=== PATIENT | male | born 1975 | race Caucasian/White ===

== ENCOUNTER 2018-03-21 18:54 | Emergency (ER) | payer OTHER ==
[2018-03-21 19:02] VITALS: RESP 18
[2018-03-21] MEDS ORDERED: IBUPROFEN 600 MG TAB PO STA (19:35)
--- NOTE | 2018-03-21 19:42 | ED ---
General Adult HPI - General Chief complaint: Extremity Injury, Lower Stated complaint: ankle injury-[facility] Time Seen by Provider: 03/21/18 19:04 Source: patient, RN notes reviewed Mode of arrival: ambulatory Limitations: no limitations - History of Present Illness Initial comments: 42-year-old male presents to the emergency department for a chief complaint of left ankle pain 3 hours. 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 Patient states he heard a pop. Patient states he has been ambulating on the ankle without difficulty. He has not had Motrin or Tylenol as of yet. He denies falling, hitting his head, or any other injuries. Patient has no other complaints at this time including shortness of breath, chest pain, abdominal pain, nausea or vomiting, headache, or visual changes. - Related Data Home Medications Medication Instructions Recorded Confirmed No Known Home Medications 03/21/18 03/21/18 Allergies Allergy/AdvReac Type Severity Reaction Status Date / Time Sulfa (Sulfonamide Allergy Rash/Hives Verified 03/21/18 19:02 Antibiotics) Review of Systems ROS Statement: Those systems with pertinent positive or pertinent negative responses have been documented in the HPI. ROS Other: All systems not noted in ROS Statement are negative. Past Medical History Past Medical History: Asthma History of Any Multi-Drug Resistant Organisms: None Reported Additional Past Surgical History / Comment(s): vasectomy Past Psychological History: No Psychological Hx Reported Smoking Status: Former smoker Past Alcohol Use History: None Reported Past Drug Use History: None Reported General Exam Limitations: no limitations General appearance: alert, in no apparent distress Head exam: Present: atraumatic, normocephalic, normal inspection Eye exam: Present: normal appearance, PERRL, EOMI. Absent: scleral icterus, conjunctival injection, periorbital swelling ENT exam: Present: normal exam, mucous membranes moist Neck exam: Present: normal inspection, full ROM. Absent: tenderness, meningismus, lymphadenopathy Respiratory exam: Present: normal lung sounds bilaterally. Absent: respiratory distress, wheezes, rales, rhonchi, stridor Cardiovascular Exam: Present: regular rate, normal rhythm, normal heart sounds. Absent: systolic murmur, diastolic murmur, rubs, gallop, clicks Extremities exam: Present: full ROM (Patient does have full range motion of the left ankle including plantar flexion and dorsi flexion although does have some pain in the lateral malleolus with dorsi flexion of the left ankle), tenderness (Tenderness noted to the left lateral malleolus. No tenderness noted to the medial malleolus. No tenderness to the navicular or fifth metatarsal in left foot.), normal capillary refill (Capillary refill less than 2 seconds and DP pulse 2+ in the left lower extremity), other (Patient does have mild edema noted over the left lateral malleolus. No ecchymosis or erythema present.) Neurological exam: Present: alert, oriented X3, CN II-XII intact Psychiatric exam: Present: normal affect, normal mood Course Vital Signs 03/21/18 18:59 Temperature 98.8 F Pulse Rate 108 H Respiratory 18 Rate Blood Pressure 137/92 O2 Sat by Pulse 96 Oximetry Medical Decision Making - Medical Decision Making 42-year-old male presents for left ankle pain after twisting his ankle. Neurovascular intact left lower extremity. There is edema noted of the left lateral malleolus. No significant tenderness noted in the left foot. There is tenderness to the left lateral malleolus. X-ray shows no fracture, mild soft tissue swelling. No fracture in the foot either. Patient was offered OCL, prefers Aircast. Patient was also given José Manuel wraps. Patient has crutches at home. He was given referral to orthopedics. He will follow up with primary care and orthopedics in one to 2 days. He will return if he has any worsening symptoms. Vitals within acceptable limits Disposition Clinical Impression: Ankle pain, left Disposition: HOME SELF-CARE Condition: Good Instructions: Ankle Sprain (ED) Additional Instructions: Please follow up with orthopedics in one to 2 days. Rest ice and elevate the left ankle. Take Motrin and Tylenol for pain. Use crutches as needed. Use air splint or José Manuel wraps. Return to the emergency department if you have any worsening symptoms. Is patient prescribed a controlled substance at d/c from ED?: No Referrals: Lucia Guo MD [Primary Care Provider] - 1-2 days Ravi Philippe MD [STAFF PHYSICIAN] - 1-2 days Time of Disposition: 20:41
--- NOTE | 2018-03-21 20:18 | XR ---
EXAMINATION TYPE: XR foot complete LT DATE OF EXAM: 03/21/2018 COMPARISON: NONE HISTORY: Foot pain TECHNIQUE: 3 views FINDINGS: There is a plantar calcaneal spur. I see no fracture nor dislocation. Metatarsals are intac t. There are no erosions. IMPRESSION: Calcaneal spurring. No fracture seen.
--- NOTE | 2018-03-21 20:19 | XR ---
EXAMINATION TYPE: XR ankle complete LT DATE OF EXAM: 03/21/2018 COMPARISON: NONE HISTORY: Pain TECHNIQUE: 3 views FINDINGS: Ankle mortise is anatomic. I see no fracture nor dislocation. There is a plantar calcaneal spur. IMPRESSION: No fracture seen. Mild lateral soft tissue swelling.
[2018-03-21 21:10] VITALS: BP 147/97; PULSE 84; TEMP 98
== END 2018-03-21 20:55 | disposition home or self-care (01) ==
LOC: EC 18:54
DX: M25.572 Pain in left ankle and joints of left foot (principal); Z88.2 Allergy status to sulfonamides; Z87.891 Personal history of nicotine dependence; X50.1XXA Overexertion from prolonged static or awkward postures, initial encounter; Y93.01 Activity, walking, marching and hiking; Y92.69 Other specified industrial and construction area as the place of occurrence of the external cause; Y99.0 Civilian activity done for income or pay
CPT/HCPCS: 99283

== ENCOUNTER → 2018-03-30 | Outpatient (CLI) | payer OTHER ==
--- NOTE | 2018-03-30 10:18 | XR ---
EXAMINATION TYPE: XR ankle complete LT DATE OF EXAM: 03/30/2018 COMPARISON: NONE HISTORY: 42-year-old male pain, twisting injury 9 days ago, ankle sprain TECHNIQUE: 3 views FINDINGS: Mild soft tissue swelling at the ankle. No acute fracture, subluxation, or dislocation. Ankle mortise remains congruent. Talar dome is intact. The subtalar joint align. Small plantar calcaneal spur. IMPRESSION: No acute or healing fracture seen. There is soft tissue swelling. Small plantar calcaneal spur.
== END ==
LOC: RADXRMAIN 09:56
PROVIDERS: ATTEND Emergency Medicine
DX: M77.32 Calcaneal spur, left foot (principal); M79.89 Other specified soft tissue disorders

== ENCOUNTER 2021-07-06 04:17 | Emergency (ER) | payer BC ==
[2021-07-06] MEDS ORDERED: HYDROmorphone 0.5 MG/0.5 ML SYRINGE IVP STA (04:38)
[2021-07-06] MEDS ORDERED: KETOROLAC 15 MG/ML 1 ML VIAL IVP STA ×2 (04:38→07:37)
[2021-07-06 04:41] LABS: Basophils # (A) 0.1 k/uL (0-0.2); Basophils % (A) 0 %; Eosinophils # (A) 0.3 k/uL (0-0.7); Eosinophils % (A) 2 %; HCT 44.9 % (39.0-53.0); Lymphocytes # (A) 1.2 k/uL (1.0-4.8); Lymphocytes % (A) 8 %; MCH 29.5 pg (25.0-35.0); MCHC 33.3 g/dL (31.0-37.0); MCV 88.5 fL (80.0-100.0); Mean Platelet Volume 6.9; Monocytes # (A) 0.9 k/uL (0-1.0); Monocytes % (A) 6 %; Neutrophils # (A) 11.7 k/uL (1.3-7.7); Neutrophils % (A) 79 %; Platelet Count 230 k/uL (150-450); RBC 5.07 m/uL (4.30-5.90); WBC 14.9 k/uL (3.8-10.6)
[2021-07-06 04:54] LABS: ALT 27 U/L (4-49); AST 23 U/L (17-59); African American GFR (CKD) >90 (>60 ml/min/1.73 sqM); Alkaline Phosphatase 77 U/L (38-126); Anion Gap 7 mmol/L; Blood Urea Nitrogen 16 mg/dL (9-20); Calcium 8.8 mg/dL (8.4-10.2); Carbon Dioxide 27 mmol/L (22-30); Chloride 102 mmol/L (98-107); Glucose 131 mg/dL (74-99); Non-African American GFR(CKD) 87 (>60 ml/min/1.73 sqM); Potassium 4.3 mmol/L (3.5-5.1); Sodium 136 mmol/L (137-145); Total Bilirubin 1.5 mg/dL (0.2-1.3); Total Protein 7.3 g/dL (6.3-8.2)
--- NOTE | 2021-07-06 05:24 | CT ---
EXAMINATION TYPE: CT abdomen pelvis wo con DATE OF EXAM: 07/06/2021 COMPARISON: None HISTORY: flank pain CT DLP: 2008.4 mGycm Automated exposure control for dose reduction was used. Images obtained from the diaphragm to the floor the pelvis without contrast. Lung bases are clear. There is no pleural effusion. Heart size is normal. No pericardial effusion. There is no adrenal mass. The kidneys have normal size. No hydronephrosis. Ureters are not dilated. T here is no retroperitoneal adenopathy. Bladder distends smoothly. There is no internal hernia. No jyotsna e fluid in the pelvis. There is no evidence of pelvic mass. Appendix not seen. No sign of thickened a ppendix. There is no mesenteric edema. No ascites or free air. No evidence of bowel obstruction. The lumbar vertebra have normal alignment. There is degenerative disc space narrowing at L4-5. Design Manager ior elements are intact. Facet joints are intact. No compression fracture. IMPRESSION: Negative CT scan abdomen and pelvis. No evidence of renal stone or obstruction.
[2021-07-06] MEDS ORDERED: HYDROmorphone 1 MG/ML 1 ML SYRINGE IVP STA (06:07)
[2021-07-06 06:16] LABS: Amylase 69 U/L (30-110); Lipase 102 U/L (23-300)
[2021-07-06 06:20] LABS: Appearance,Urine Turbid (Clear); Color,Urine Dark Red; Glucose,Urine (UA) Negative (Negative); PH, Urine 6.5 (5.0-8.0); Protein,Urine 2+ (Negative); Specific Gravity,Urine 1.022 (1.001-1.035)
[2021-07-06 06:21] LABS: Bilirubin,Urine Negative (Negative); Blood,Urine Large (Negative); Ketones,Urine 1+ (Negative); Leukocyte Esterase,Urine Large (Negative); Nitrite,Urine Positive (Negative); Urobilinogen,Urine <2.0 mg/dL (<2.0); WBC,Urine >182 /hpf (0-5)
[2021-07-06 06:22] LABS: Bacteria,Urine Occasional /hpf; Mucus,Urine Few /hpf; RBC,Urine >182 /hpf (0-5)
[2021-07-06] MEDS ORDERED: LEVOFLOXACIN 500 MG TAB PO STA (07:06)
--- NOTE | 2021-07-06 07:12 | ED ---
Abdominal Pain HPI - General Chief Complaint: Abdominal Pain Stated Complaint: kidney stone Time Seen by Provider: 07/06/21 04:33 Source: patient Mode of arrival: ambulatory Limitations: no limitations - History of Present Illness MD Complaint: flank pain Onset/Timin -: days(s) Location: L flank Radiation: suprapubic Migration to: no migration Severity: moderate Quality: aching, sharp Consistency: constant Improves With: nothing Worsens With: nothing Associated Symptoms: hematuria - Related Data Previous Rx's Medication Instructions Recorded Ciprofloxacin HCl [Cipro] 500 mg PO Q12HR #56 tablet 07/06/21 HYDROcodone/APAP 5-325MG [[place] 1 tab PO Q4HR PRN 3 Days #18 tab 07/06/21 5-325] Acetaminophen [Tylenol] 500 mg PO Q4-6H PRN #24 tab 07/15/21 Cyclobenzaprine [Flexeril] 10 mg PO TID PRN #20 tab 07/15/21 Ibuprofen [Motrin] 600 mg PO Q8HR PRN #30 tab 07/15/21 Allergies Allergy/AdvReac Type Severity Reaction Status Date / Time Sulfa (Sulfonamide Allergy Rash/Hives Verified 07/06/21 04:22 Antibiotics) Review of Systems ROS Statement: Those systems with pertinent positive or pertinent negative responses have been documented in the HPI. ROS Other: All systems not noted in ROS Statement are negative. Constitutional: Reports: fever. Denies: chills Respiratory: Denies: cough, dyspnea Cardiovascular: Denies: chest pain, palpitations, edema Gastrointestinal: Reports: as per HPI, abdominal pain. Denies: nausea, vomiting, diarrhea, constipation Genitourinary: Reports: hematuria. Denies: discharge, testicular pain, testicular mass Musculoskeletal: Denies: back pain Skin: Denies: rash Neurological: Denies: headache, weakness, numbness Past Medical History Past Medical History: Asthma History of Any Multi-Drug Resistant Organisms: None Reported Additional Past Surgical History / Comment(s): vasectomy Past Psychological History: No Psychological Hx Reported Smoking Status: Never smoker Past Alcohol Use History: None Reported Past Drug Use History: None Reported General Exam Limitations: no limitations General appearance: alert, in no apparent distress Head exam: Present: atraumatic, normocephalic Eye exam: Present: normal appearance. Absent: scleral icterus, conjunctival injection Neck exam: Present: normal inspection Respiratory exam: Present: normal lung sounds bilaterally. Absent: respiratory distress, wheezes, rales, rhonchi, stridor Cardiovascular Exam: Present: regular rate, normal rhythm, normal heart sounds. Absent: systolic murmur, diastolic murmur, rubs, gallop GI/Abdominal exam: Present: soft. Absent: distended, tenderness, guarding, rebound, rigid, mass Extremities exam: Present: normal inspection, normal capillary refill. Absent: pedal edema, calf tenderness Back exam: Present: normal inspection, CVA tenderness (R). Absent: CVA tenderness (L), vertebral tenderness Neurological exam: Present: alert Skin exam: Present: warm, dry, intact, normal color. Absent: rash Course Vital Signs 07/06/21 07/06/21 04:18 07:21 Temperature 100.1 F H 98.7 F Pulse Rate 83 68 Respiratory 20 19 Rate Blood Pressure 155/100 154/97 O2 Sat by Pulse 95 98 Oximetry Medical Decision Making - Lab Data Result diagrams: 07/06/21 04:30 07/06/21 04:30 Lab Results 07/06/21 07/06/21 07/06/21 Range/Units 04:30 04:30 04:30 WBC 14.9 H (3.8-10.6) k/uL RBC 5.07 (4.30-5.90) m/uL Hgb 15.0 (13.0-17.5) gm/dL Hct 44.9 (39.0-53.0) % MCV 88.5 (80.0-100.0) fL MCH 29.5 (25.0-35.0) pg MCHC 33.3 (31.0-37.0) g/dL RDW 14.0 (11.5-15.5) % Plt Count 230 (150-450) k/uL MPV 6.9 Neutrophils % 79 % Lymphocytes % 8 % Monocytes % 6 % Eosinophils % 2 % Basophils % 0 % Neutrophils # 11.7 H (1.3-7.7) k/uL Lymphocytes # 1.2 (1.0-4.8) k/uL Monocytes # 0.9 (0-1.0) k/uL Eosinophils # 0.3 (0-0.7) k/uL Basophils # 0.1 (0-0.2) k/uL Sodium 136 L (137-145) mmol/L Potassium 4.3 (3.5-5.1) mmol/L Chloride 102 (98-107) mmol/L Carbon Dioxide 27 (22-30) mmol/L Anion Gap 7 mmol/L BUN 16 (9-20) mg/dL Creatinine 1.02 (0.66-1.25) mg/dL Est GFR (CKD-EPI)AfAm >90 (>60 ml/min/1.73 sqM) Est GFR (CKD-EPI)NonAf 87 (>60 ml/min/1.73 sqM) Glucose 131 H (74-99) mg/dL Calcium 8.8 (8.4-10.2) mg/dL Total Bilirubin 1.5 H (0.2-1.3) mg/dL AST 23 (17-59) U/L ALT 27 (4-49) U/L Alkaline Phosphatase 77 (38-126) U/L Total Protein 7.3 (6.3-8.2) g/dL Albumin 4.0 (3.5-5.0) g/dL Amylase 69 (30-110) U/L Lipase 102 (23-300) U/L Urine Color Dark Red Urine Appearance Turbid (Clear) Urine pH 6.5 (5.0-8.0) Ur Specific [place] 1.022 (1.001-1.035) Urine Protein 2+ H (Negative) Urine Glucose (UA) Negative (Negative) Urine Ketones 1+ H (Negative) Urine Blood Large H (Negative) Urine Nitrite Positive (Negative) Urine Bilirubin Negative (Negative) Urine Urobilinogen <2.0 (<2.0) mg/dL Ur Leukocyte Esterase Large H (Negative) Urine RBC >182 H (0-5) /hpf Urine WBC >182 H (0-5) /hpf Urine Bacteria Occasional H (None) /hpf Urine Mucus Few H (None) /hpf Disposition Clinical Impression: Urinary tract infection Disposition: HOME SELF-CARE Condition: Good Instructions (If sedation given, give patient instructions): Urinary Tract Infection in Men (ED) Prescriptions: Ciprofloxacin HCl [Cipro] 500 mg PO Q12HR #56 tablet HYDROcodone/APAP 5-325MG [[place] 5-325] 1 tab PO Q4HR PRN 3 Days #18 tab PRN Reason: Pain Is patient prescribed a controlled substance at d/c from ED?: No Referrals: Lucia Guo MD [Primary Care Provider] - 1-2 days
[2021-07-06 07:22] VITALS: BP 154/97; PULSE 68; RESP 19; TEMP 98.7
== END 2021-07-06 07:46 | disposition home or self-care (01) ==
LOC: EC 04:17
DX: N39.0 Urinary tract infection, site not specified (principal); J45.909 Unspecified asthma, uncomplicated; Z88.2 Allergy status to sulfonamides
CPT/HCPCS: 36415; 80053; 82150; 83690; 85025; 81001; 87086; 87077; 87186; 74176; 99284; 96374; 96375; 96376; J1170 ×2; J1885

== ENCOUNTER 2021-07-15 01:23 | Emergency (ER) | payer OTHER, BC ==
[2021-07-15 01:34] VITALS: BP 172/103; PULSE 86; RESP 18; TEMP 98.4
[2021-07-15] MEDS ORDERED: ORPHENADRINE 30 MG/ML 2 ML VIAL IM STA (01:38)
[2021-07-15] MEDS ORDERED: KETOROLAC 15 MG/ML 1 ML VIAL IM STA (01:38)
[2021-07-15] MEDS ORDERED: ACETAMINOPHEN TAB 500 MG TAB PO STA (01:38)
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
== END 2021-07-15 02:24 | disposition home or self-care (01) ==
LOC: EC 01:23
DX: S79.921A Unspecified injury of right thigh, initial encounter (principal); J45.909 Unspecified asthma, uncomplicated; M25.572 Pain in left ankle and joints of left foot; W19.XXXA Unspecified fall, initial encounter
CPT/HCPCS: 96372 ×3; 99283; 99284; J2360; J1885